=== PATIENT | male | born 1940 | race Caucasian/White ===

== ENCOUNTER 2017-10-12 14:50 | Outpatient (CLI) | payer MEDICARE, OTHER ==
[2017-10-12 15:30] LABS: #Eosinphils 0.3 thou/uL (0.0-0.7); #Lymphocytes 2.2 thou/uL (1.20-3.40); #Monocytes 0.7 thou/uL (0.11-0.59); #Neutrophils 5.2 thou/uL (1.40-6.50); %Basophils 0.4 % (0.0-1.0); %Eosinophils 4.1 % (0.0-10.0); %Lymphocytes 26.1 % (21.0-51.0); %Monocytes 7.9 % (0.0-10.0); %Neutrophils 61.5 % (42.0-75.0); Hemoglobin 15.2 g/dL (14.0-18.0); Mean Corpuscular HGB CONC 32.5 g/dL (32.0-36.0); Mean Corpuscular Hemoglobin 31.7 pg (27.0-31.0); Mean Corpuscular Volume 97.6 fl (80.0-94.0); Mean Platelet Volume 9.1 fL (7.4-10.4); Platelet Count 173 thou/uL (130-400); RBC Distribution Width 12.5 % (11.5-14.5); Red Blood Cell (RBC) Count 4.79 mill/uL (4.70-6.10); White Blood Cell (WBC) Count 8.4 thou/uL (4.8-10.8)
[2017-10-12 15:36] LABS: INR-International Normal Ratio 1.5; Prothrombin Time 17.9 SEC (12.0-14.7)
[2017-10-12 15:37] LABS: PTT 56.4 SEC (22.9-36.1)
[2017-10-12 15:54] LABS: ALT (SGPT) 26 U/L (8-55); AST (SGOT) 27 U/L (5-34); Albumin 4.5 g/dL (3.4-4.8); Alkaline Phosphatase 91 U/L (40-150); Anion Gap 18 mmol/L (10-20); BUN (Urea Nitrogen) 25 mg/dL (8.4-25.7); Calc. Creatinine Clearance 0 mL/min (70-130); Calcium 9.6 mg/dL (7.8-10.44); Carbon Dioxide 23 mmol/L (23-31); Chloride 105 mmol/L (98-107); Estimated GFR-MDRD 53; Globulin 2.3 g/dL (2.4-3.5); Glucose 98 mg/dL (83-110); Potassium 4.5 mmol/L (3.5-5.1); Protein, Total 6.8 g/dL (5.8-8.1); Sodium 141 mmol/L (136-145)
== END 2017-10-12 14:51 | disposition home or self-care (01) ==
LOC: LABBT 14:50
PROVIDERS: ATTEND Surgery
DX: Z01.810 Encounter for preprocedural cardiovascular examination (principal); Z01.812 Encounter for preprocedural laboratory examination; D17.9 Benign lipomatous neoplasm, unspecified
CPT/HCPCS: 80053; 85025; 85610; 85730; 93005; 93010

== ENCOUNTER 2017-10-28 06:01 | Day surgery (SDC) | payer MEDICARE, OTHER ==
[2017-10-12 15:27] VITALS: BMI 29.0
[2017-10-28] MEDS ORDERED: Fentanyl 100 MCG/2 ML VIAL ONE (06:41)
[2017-10-28] MEDS ORDERED: CEFAZOLIN/Water 2 GM/20 ML SYRINGE ONE (06:59)
[2017-10-28] MEDS ORDERED: Midazolam HCl 2 mg/2 ml Vial ONE (07:30)
[2017-10-28] MEDS ORDERED: Lidocaine 2% w/Epinephrine 1:200K 20 ML VIAL ONE (07:47)
[2017-10-28] MEDS ORDERED: Bupivacaine 0.25% HCL 30 ML VIAL ONE (07:47)
[2017-10-28] MEDS ORDERED: Ondansetron HCl/PF 4 MG/2 ML Vial ONE ×2 (08:44→14:06)
--- NOTE | 2017-10-28 08:57 | OP ---
PREOPERATIVE DIAGNOSIS: Painful lipoma of right upper back. SURGEON: Stalin Greene M.D. PROCEDURE PERFORMED: Excisional biopsy. INDICATIONS: A 77-year-old male with an enlarging soft tissue mass in his right upper back. FINDINGS: A multilobular 8 x 6 cm lipoma of the right upper back. DESCRIPTION OF PROCEDURE: After informed consent was obtained, the patient was taken to the operatin g room and given total intravenous anesthesia, placed in the left lateral decubitus position. His ba ck was prepped and draped in the usual fashion. Local anesthesia infiltrated subcutaneously and deep . A longitudinal on oblique incision was performed. The subcu divided sharply. The capsule was inc ised. It had multiple lobules that had to be gently extracted from their pockets digitally. As they were extracted, I was able to reflect it back and get the posterior aspect freed up to that circumfe rentially and took out the whole thing out. Hemostasis achieved with electrocautery. The wound was irrigated and irrigation fluid removed. The fascia and subcutaneous tissue closed with interrupted 3 -0 Vicryl suture. Skin closed with a running subcuticular 4-0 Rapide. Steri-Strips applied. Steril e bandage applied. The patient tolerated the procedure well and transferred to recovery in good cond ition. Sponge and needle count verified correct x2.
== END 2017-10-28 09:45 | disposition home or self-care (01) ==
LOC: SDC 06:01
PROVIDERS: ATTEND Surgery
PROC: 0JB70ZX Excision of Back Subcutaneous Tissue and Fascia, Open Approach, Diagnostic (ICD-10-PCS; principal; 2017-10-28)
DX: D17.1 Benign lipomatous neoplasm of skin and subcutaneous tissue of trunk (principal); I25.10 Atherosclerotic heart disease of native coronary artery without angina pectoris; K21.9 Gastro-esophageal reflux disease without esophagitis; N40.0 Benign prostatic hyperplasia without lower urinary tract symptoms; M19.90 Unspecified osteoarthritis, unspecified site; I12.9 Hypertensive chronic kidney disease with stage 1 through stage 4 chronic kidney disease, or unspecified chronic kidney disease; N18.3 Chronic kidney disease, stage 3 (moderate); I48.0 Paroxysmal atrial fibrillation; E78.5 Hyperlipidemia, unspecified; Z79.01 Long term (current) use of anticoagulants; Z79.82 Long term (current) use of aspirin; Z79.899 Other long term (current) drug therapy; Z88.8 Allergy status to other drugs, medicaments and biological substances; Z88.0 Allergy status to penicillin; Z95.1 Presence of aortocoronary bypass graft; Z96.653 Presence of artificial knee joint, bilateral; Z95.5 Presence of coronary angioplasty implant and graft; Z98.890 Other specified postprocedural states; Z87.11 Personal history of peptic ulcer disease
CPT/HCPCS: 88304; J2250; J2405; J3010; S0020